=== PATIENT | male | born 1985 | race African-American/Black ===

== ENCOUNTER 2017-10-14 19:14 | Emergency (ER) | payer BC ==
[2017-10-14] MEDS ORDERED: Sodium Chloride 0.9% 1,000 ML IV ONE ×2 (19:29→20:49)
--- NOTE | 2017-10-14 19:31 | EDM.PDOC ---
ED HPI GENERAL MEDICAL PROBLEM - General Chief Complaint: Gastrointestinal Problem Stated Complaint: WEAK/HEADACHE Time Seen by Provider: 10/14/17 19:30 Source of Information: Reports: Patient - History of Present Illness INITIAL COMMENTS - FREE TEXT/NARRATIVE: HISTORY AND PHYSICAL: History of present illness: [Patient presents with chief complaint of generalized weakness and diarrhea intermittent abdominal pain over the last couple of days associated with loose stools and passing gas abdominal pain is 0 out of 10 last bowel movement was here in the emergency room which was loose nonbloody no mucous watery diarrhea up to 6 loose stools daily No fever nausea vomiting chills sweats no chest pain shortness of breath dizziness or palpitation no urinary symptoms does complain of mild headache Review of systems: As per history of present illness and below otherwise all systems reviewed and negative. Past medical history: As per history of present illness and as reviewed below otherwise noncontributory. Surgical history: As per history of present illness and as reviewed below otherwise noncontributory. Social history: No reported history of drug or alcohol abuse. Family history: As per history of present illness and as reviewed below otherwise noncontributory. Physical exam: HEENT: Atraumatic, normocephalic, pupils reactive, negative for conjunctival pallor or scleral icterus, mucous membranes moist, throat clear, neck supple, nontender, trachea midline. Lungs: Clear to auscultation, breath sounds equal bilaterally, chest nontender. Heart: S1S2, regular, negative for clicks, rubs, or JVD. Abdomen: Soft, nondistended, nontender. Negative for masses or hepatosplenomegaly. Negative for costovertebral tenderness. Pelvis: Stable nontender. Genitourinary: Deferred. Rectal: Deferred. Extremities: Atraumatic, negative for cords or calf pain. Neurovascular unremarkable. Neuro: Awake, alert, oriented. Cranial nerves II through XII unremarkable. Cerebellum unremarkable. Motor and sensory unremarkable throughout. Exam nonfocal. Diagnostics: [CBC CMP troponin and CK-MB UA EKG Chest 1 view] Therapeutics: [Liter normal saline bolus 2 ] Impression: Gastroenteritis dehydration [Generalized weakness/fatigue-improved with fluids Headache]-resolved Definitive disposition and diagnosis as appropriate pending reevaluation and review of above. headache Pain Score (Numeric/FACES): 4 - Related Data Allergies Allergy/AdvReac Type Severity Reaction Status Date / Time No Known Allergies Allergy Verified 10/14/17 19:33 Home Meds: Home Meds . [No Known Home Meds] 03/16/14 [History] Past Medical History - Past Health History Medical/Surgical History: Denies Medical/Surgical History ED ROS GENERAL - Review of Systems Review Of Systems: See Below ED EXAM, GENERAL - Physical Exam Exam: See Below Course - Vital Signs Last Recorded V/S: Last Vital Signs Temp 99.3 F 10/14/17 19:26 Pulse 95 10/14/17 22:04 Resp 16 10/14/17 22:04 BP 128/81 10/14/17 22:04 Pulse Ox 99 10/14/17 22:04 - Orders/Labs/Meds Orders: Active Orders 24 hr Category Date Time Status EKG Documentation Completion [RC] STAT Care 10/14/17 19:30 Active Abdomen 2V AP Flat Upright [CR] Stat Exams 10/14/17 20:05 Taken Chest 1V Frontal [CR] Stat Exams 10/14/17 19:30 Taken UA W/MICROSCOPIC [URIN] Stat Lab 10/14/17 21:55 Ordered Labs: Laboratory Tests 10/14/17 10/14/17 10/14/17 Range/Units 19:44 19:44 21:55 WBC 6.64 (4.0-11.0) K/uL RBC 5.14 (4.50-5.90) M/uL Hgb 16.2 (13.0-17.0) g/dL Hct 46.0 (38.0-50.0) % MCV 89.5 (80.0-98.0) fL MCH 31.5 (27.0-32.0) pg MCHC 35.2 (31.0-37.0) g/dL RDW Std Deviation 39.0 (28.0-62.0) fl RDW Coeff of Aj 12 (11.0-15.0) % Plt Count 171 (150-400) K/uL MPV 10.20 (7.40-12.00) fL Neut % (Auto) 77.0 (48.0-80.0) % Lymph % (Auto) 14.9 L (16.0-40.0) % Sac % (Auto) 7.4 (0.0-15.0) % Eos % (Auto) 0.5 (0.0-7.0) % Baso % (Auto) 0.2 (0.0-1.5) % Neut # (Auto) 5.1 (1.4-5.7) K/uL Lymph # (Auto) 1.0 (0.6-2.4) K/uL Sac # (Auto) 0.5 (0.0-0.8) K/uL Eos # (Auto) 0.0 (0.0-0.7) K/uL Baso # (Auto) 0.0 (0.0-0.1) K/uL Nucleated RBC % 0.0 /100WBC Nucleated RBCs # 0 K/uL Sodium 137 (136-148) mmol/L Potassium 3.7 (3.5-5.1) mmol/L Chloride 102 (98-107) mmol/L Carbon Dioxide 29.4 (21.0-32.0) mmol/L BUN 12 (7.0-18.0) mg/dL Creatinine 1.3 (0.8-1.3) mg/dL Est Cr Clr Drug Dosing 82.67 mL/min Estimated GFR (MDRD) > 60.0 ml/min Glucose 89 (74-106) mg/dL Calcium 9.0 (8.5-10.1) mg/dL Total Bilirubin 0.4 (0.2-1.0) mg/dL AST 19 (15-37) IU/L ALT 26 (14-63) IU/L Alkaline Phosphatase 56 (46-116) U/L Creatine Kinase 226 (26-308) U/L Troponin I < 0.050 (0.000-0.056) ng/mL Total Protein 8.2 (6.4-8.2) g/dL Albumin 4.2 (3.4-5.0) g/dL Globulin 4.0 H (2.0-3.5) g/dL Albumin/Globulin Ratio 1.1 L (1.3-2.8) Urine Color YELLOW Urine Appearance CLEAR Urine pH 6.0 (5.0-8.0) Ur Specific [place] 1.010 (1.001-1.035) Urine Protein NEGATIVE (NEGATIVE) mg/dL Urine Glucose (UA) NEGATIVE (NEGATIVE) mg/dL Urine Ketones NEGATIVE (NEGATIVE) mg/dL Urine Occult Blood NEGATIVE (NEGATIVE) Urine Nitrite NEGATIVE (NEGATIVE) Urine Bilirubin NEGATIVE (NEGATIVE) Urine Urobilinogen 0.2 (<2.0) EU/dL Ur Leukocyte Esterase NEGATIVE (NEGATIVE) Urine RBC NONE SEEN (0-2/HPF) Urine WBC 0-1 (0-5/HPF) Ur Epithelial Cells RARE (NONE-FEW) Urine Bacteria RARE (NEGATIVE) Urine Mucus LIGHT (NONE-MOD) Meds: Medications Discontinued Medications Generic Name Dose Route Start Last Admin Trade Name Tawny PRN Reason Stop Dose Admin Sodium Chloride 1,000 mls @ 999 mls/hr 10/14/17 19:29 10/14/17 19:53 Normal Saline IV 10/14/17 20:29 999 mls/hr STAT ONE Administration Sodium Chloride 1,000 mls @ 999 mls/hr 10/14/17 20:49 10/14/17 20:58 Normal Saline IV 10/14/17 21:49 999 mls/hr STAT ONE Administration Departure - Departure Time of Disposition: 22:27 Disposition: Home, Self-Care 01 Condition: Good Clinical Impression: Gastroenteritis - Discharge Information Referrals: PCP,None [Primary Care Provider] - Forms: ED Department Discharge Additional Instructions: Clear liquid diet 12-24 hours Pepto-Bismol with each loose stool Return if symptoms persist or worsen Follow-up with primary care in 2 weeks [facility] [address] [place] [address] The following information is given to patients seen in the emergency department who are being discharged to home. This information is to outline your options for follow-up care. We provide all patients seen in our emergency department with a follow-up referral. The need for follow-up, as well as the timing and circumstances, are variable depending upon the specifics of your emergency department visit. If you don't have a primary care physician on staff, we will provide you with a referral. We always advise you to contact your personal physician following an emergency department visit to inform them of the circumstance of the visit and for follow-up with them and/or the need for any referrals to a consulting specialist. The emergency department will also refer you to a specialist when appropriate. This referral assures that you have the opportunity for follow-up care with a specialist. All of these measure are taken in an effort to provide you with optimal care, which includes your follow-up. Under all circumstances we always encourage you to contact your private physician who remains a resource for coordinating your care. When calling for follow-up care, please make the office aware that this follow-up is from your recent emergency room visit. If for any reason you are refused follow-up, please contact the [facility] emergency department at and asked to speak to the emergency department charge nurse. l - My Orders Last 24 Hours: My Active Orders 10/14/17 19:30 EKG Documentation Completion [RC] STAT Chest 1V Frontal [CR] Stat 10/14/17 20:05 Abdomen 2V AP Flat Upright [CR] Stat 10/14/17 21:55 UA W/MICROSCOPIC [URIN] Stat - Assessment/Plan Last 24 Hours: My Active Orders 10/14/17 19:30 EKG Documentation Completion [RC] STAT Chest 1V Frontal [CR] Stat 10/14/17 20:05 Abdomen 2V AP Flat Upright [CR] Stat 10/14/17 21:55 UA W/MICROSCOPIC [URIN] Stat
[2017-10-14 20:24] LABS: CHLORIDE,CL 102 mmol/L (98-107); SODIUM,NA 137 mmol/L (136-148)
[2017-10-14 22:44] VITALS: BP 112/74
--- NOTE | 2017-10-15 09:38 | CR ---
EXAM DATE: 10/14/17 PATIENT'S AGE: 32 Patient: MARISA HACKETT Facility: [place], [place] Site . Site : 1985 Study: XRay Chest [id number] 8:13:02 PM Ordering Physician: Woody Ruiz Final Report: INDICATION: chest pain CHEST, ONE VIEW An AP radiograph of the chest was performed. Comparison: No previous studies are currently available for comparison. The lungs appear clear and no pleural effusions are identified. The cardiomediastinal silhouette and pulmonary vasculature appear normal, as do the visualized bones. IMPRESSION: No acute intrathoracic abnormality identified. ARAMIS FOSTER MD [employer] Dictated by: Dominick Foster MD @ 10/14/2017 20:29:41 (Electronic Signature) Report Signed by Proxy. [facility]
--- NOTE | 2017-10-15 09:39 | CR ---
EXAM DATE: 10/14/17 PATIENT'S AGE: 32 Patient: MARISA HACKETT Facility: [place], [place] Site . Site : 1985 Study: XRay Abdomen [id number]/[id number] 8:28:36 PM Ordering Physician: Woody Ruiz Final Report: INDICATION: GERD. COMPARISON: None. FINDINGS/IMPRESSION: Nonspecific moderate gastric distention. Small amounts of gas within nondistended loops of colon in the upper and midabdomen. No small bowel dilation or free air identified. No suspicious intra-abdominal calcifications. Unremarkable bony structures. Dictated by Dominick Foster MD @ 10/14/2017 8:47:09 PM Dictated by: Dominick Foster MD @ 10/14/2017 20:48:52 (Electronic Signature) Report Signed by Proxy. [facility]
== END 2017-10-14 22:46 | disposition home or self-care (01) ==
LOC: MW.ED 19:14
DX: K52.9 Noninfective gastroenteritis and colitis, unspecified (principal); E86.0 Dehydration
CPT/HCPCS: 36415; 71045; 74019; 80053; 81001; 82550; 84484; 85025; 93005; 96360; 96361; 99284; J7040